=== PATIENT | male | born 1960 | race Caucasian/White ===

== ENCOUNTER 2022-01-13 10:48 | Emergency (ER) | payer OTHER, SELFPAY ==
[2022-01-13] VITALS (11 sets, daily range): BP systolic 168–199; BP diastolic 88–105; PULSE 67–78; RESP 17–29; TEMP 36.9; O2SAT 93–99; BMI 30.2
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
[2022-01-13 11:06] LABS: Add Manual Diff / Slide Review NO; Basophils Absolute Auto 100 /uL (0-100); Basophils Percent Auto 1.1 % (0-2); Eosinophils Absolute Auto 400 /uL (0-450); Hematocrit 43.2 % (41-53); Hemoglobin 14.7 g/dL (13.5-17.5); Lymphocytes Absolute Auto 1900 /uL (1100-4500); Lymphocytes Percent Auto 22.1 % (25-40); Mean Corpuscular HGB Conc 34.1 % (30-36); Mean Corpuscular Hemoglobin 28.9 PG (26-34); Mean Corpuscular Volume 84.8 fL (80-100); Monocytes Absolute Auto 900 /uL (0-900); Monocytes Percent Auto 10.7 % (3-14); Neutrophils Absolute Auto 5300 /uL (1500-7000); Neutrophils Percent Auto 61.1 % (50-75); Platelet Count 257 X10^3/uL (150-400); Red Blood Cell Count 5.09 X10^6/uL (4.5-5.9); Red Cell Distribution Width 13.8 % (11.6-14.8); White Blood Cell Count 8.7 X10^3/uL (4.5-11.0)
[2022-01-13] MEDS: MORPHINE 2 MG/ML INJ IV (11:12)
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
[2022-01-13 11:25] LABS: Alanine Aminotransferase 25 IU/L (<50); Albumin 4.1 g/dL (3.5-5.0); Albumin Globulin Ratio 1.4 (1.0-2.8); Alkaline Phosphatase 58 U/L (38-126); Aspartate Aminotransferase 29 IU/L (17-59); BUN Creatinine Ratio 15.3 (6-22); Bilirubin Total 0.3 mg/dL (0.2-1.3); Blood Urea Nitrogen 15 mg/dL (9-20); Calcium 8.8 mg/dL (8.4-10.2); Carbon Dioxide 27 mmol/L (22-32); Chloride 102 mmol/L (98-107); Estimated Glomerular Filt Rate > 60 mL/min (>60); Ethanol (ETOH) < 10 mg/dL; Globulin 2.9 g/dL (1.7-4.1); Glucose 114 mg/dL (80-110); HEMOLYSIS 25 (0-50); Lipase 68 U/L (23-300); Potassium 4.7 mmol/L (3.4-5.1); Sodium 134 mmol/L (137-145)
[2022-01-13] MEDS: HYDROMORPHONE 0.5 MG INJ IV ×2 (11:53→13:20)
--- NOTE | 2022-01-13 12:34 | DI.RAD.S_ITS ---
PROCEDURE: XR FOOT RT 2V INDICATIONS: trauma TECHNIQUE: 3 views of the foot were acquired. COMPARISON: [facility], , FOOT 3V LEFT, 12/13/2016, 11:01. FINDINGS: Bones: No fractures or dislocations. No suspicious bony lesions. Soft tissues: No tibiotalar joint effusion. Achilles tendon appears normal. IMPRESSION: No visualized acute fracture or dislocation. However, if clinical concern and/or pain persist, short interval imaging followup in 7-10 days is recommended, as occult injury cannot be definitively excluded. Dictated by: Chayo Toney M.D. on 01/13/2022 at 13:34 Approved by: Chayo Toney M.D. on 01/13/2022 at 13:34
--- NOTE | 2022-01-13 13:05 | PC.NURSE ---
[facility]30[facility].
--- NOTE | 2022-01-13 13:15 | PC.NURSE ---
incentive spirometer training given. pt demonstrated.
== END 2022-01-13 14:13 | disposition home or self-care (01) ==
PROVIDERS: Emergency Provider Emergency Medicine; Family Provider Family Medicine; PCP Family Medicine
DX: S22.41XA Multiple fractures of ribs, right side, initial encounter for closed fracture (principal); S80.211A Abrasion, right knee, initial encounter; S90.811A Abrasion, right foot, initial encounter; R07.9 Chest pain, unspecified; V89.2XXA Person injured in unspecified motor-vehicle accident, traffic, initial encounter
CPT/HCPCS: 36415; 70450; 71045; 71260; 72125; 73560; 73620; 74177; 80053; 80320; 83690; 85025; 93005; 96374; 96375; 96376; 99285; J1170; J2270; Q9967

== ENCOUNTER 2022-01-15 15:54 | Emergency (ER) | payer OTHER, SELFPAY ==
[2022-01-15 16:04] VITALS: BP 189/83; PULSE 88; RESP 19; TEMP 36.2; O2SAT 96; BMI 27.3
--- NOTE | 2022-01-15 16:10 | DI.RAD.S_ITS ---
PROCEDURE: XR CHEST 1V INDICATIONS: increase in sob, rib fractures TECHNIQUE: One view of the chest was acquired. COMPARISON: [facility], CT, CT CHEST ABD PEL W CON, 01/13/2022, 10:59. [facility], CR, XR CHEST 1V, 01/13/2022, 10:45. FINDINGS: Surgical changes and devices: Postoperative change of the right shoulder can be seen. Lungs and pleura: Low lung volumes are noted. This causes a crowded appearance to the lung markings and limits evaluation. Mild generalized interstitial prominence can be seen. No large pneumothorax or large pleural effusions are seen. Mediastinum: Mediastinal contours appear normal. Heart size is normal. Bones and chest wall: No suspicious bony lesions. The known right-sided rib fractures are not definitely seen on this plain film study. Age-appropriate bony degenerative changes are seen. Overlying soft tissues appear unremarkable. IMPRESSION: No pneumothorax is seen. The known right-sided rib fractures are not well seen on this plain film study. Low lung volumes with generalized interstitial prominence. Pulmonary edema is suspected, although please consider atypical infection, including COVID pneumonia. Postoperative and degenerative changes are seen. Dictated by: Fadi Machado M.D. on 01/15/2022 at 15:30 Approved by: Fadi Machado M.D. on 01/15/2022 at 15:32
[2022-01-15] MEDS: HYDROCODONE/ACET 5/325 TABLET 2 TAB PO (18:14)
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
[2022-01-15] MEDS: LIDOCAINE PATCH 1 EACH ADH..PATCH TOP (18:41)
[2022-01-15] MEDS: HYDROCODONE/ACET 5/325 PREPACK 1 BOTTLE MISC (18:41)
[2022-01-15] MEDS: cephALEXin 250 MG PREPACK 1 BOTTLE MISC (18:41)
[2022-01-15 18:44] VITALS: BP 137/85; PULSE 88; RESP 20; O2SAT 97
== END 2022-01-15 18:47 | disposition home or self-care (01) ==
PROVIDERS: Emergency Provider Emergency Medicine; Family Provider Family Medicine; PCP Family Medicine
DX: S20.91XA Abrasion of unspecified parts of thorax, initial encounter (principal); S22.41XD Multiple fractures of ribs, right side, subsequent encounter for fracture with routine healing
CPT/HCPCS: 71045; 99283; 99284